=== PATIENT | female | born 1975 | race Caucasian/White ===

== ENCOUNTER 2019-10-29 06:34 | Day surgery (SDC) | payer OTHER ==
[~2019-10-29] VITALS: Ht 172.7 cm; Wt 63.2 kg
[2019-10-29] MEDS ORDERED: BACITRACIN 50,000 UNIT ONE (06:46)
[2019-10-29] MEDS ORDERED: BACITRACIN OINT 500U/GM, 15 GM ONE (06:46)
[2019-10-29] MEDS ORDERED: BUPIVACAINE/PF-EPI 0.5% 1:200K ONE (06:46)
[2019-10-29] MEDS ORDERED: THROMBIN 20,000 UNIT VIAL TP ONE (06:46)
[2019-10-29] MEDS ORDERED: LACTATED RINGERS 1,000 ML IV SCH (07:25)
[2019-10-29] MEDS ORDERED: CHLORHEXIDINE 15 ML UDC MM ONE (07:30)
[2019-10-29] MEDS ORDERED: CELE200C PO (07:32)
[2019-10-29] MEDS ORDERED: CALCIUM PO (07:32)
[2019-10-29] MEDS ORDERED: ZINC PO (07:32)
[2019-10-29] MEDS ORDERED: OMEG-157 PO (07:32)
[2019-10-29] MEDS ORDERED: VITA1TAB19 PO (07:32)
[2019-10-29] MEDS ORDERED: MULT-658 PO (07:32)
[2019-10-29] MEDS ORDERED: MAGNESIUM PO (07:32)
[2019-10-29] MEDS ORDERED: BIOTIN PO (07:32)
[2019-10-29 08:01] VITALS: BP 115/77
[2019-10-29] MEDS ORDERED: MIDAZOLAM 1 MG/ML, 2ML ONE (08:25)
[2019-10-29] MEDS ORDERED: FENTANYL PF 100 MCG/2ML ONE (08:25)
[2019-10-29] MEDS ORDERED: PROPOFOL 10 MG/ML, 50ML ONE (09:11)
[2019-10-29] MEDS ORDERED: CEFAZOLIN 1,000 MG ONE (09:47)
[2019-10-29] MEDS ORDERED: ROCURONIUM 10MG/ML,5ML ONE (09:47)
[2019-10-29] MEDS ORDERED: KETOROLAC 30 MG/1 ML ONE (09:47)
[2019-10-29] MEDS ORDERED: LIDOCAINE-MPF 2% ,5ML ONE (09:47)
[2019-10-29] MEDS ORDERED: GLYCOPYRROLATE 0.2MG/1ML, 5ML ONE (09:47)
[2019-10-29] MEDS ORDERED: DEXAMETHASONE 4 MG/ML, 1ML ONE (09:47)
[2019-10-29] MEDS ORDERED: ONDANSETRON 2MG/ML, 2ML ONE (09:47)
[2019-10-29] MEDS ORDERED: PROPOFOL 10 MG/ML, 20ML ONE (09:47)
[2019-10-29] MEDS ORDERED: NEOSTIGMINE 1 MG/ML, 10ML ONE (09:47)
[2019-10-29] MEDS ORDERED: SUCCINYLCHOLINE 20 MG/ML, 10ML ONE (09:47)
[2019-10-29] MEDS ORDERED: ALBUTEROL SULFATE 2.5 MG/3 ML NPPB PRN (10:00)
[2019-10-29] MEDS ORDERED: HYDROmorphone 1 MG/ML, 1ML INJ IVPush PRN (10:00)
[2019-10-29] MEDS ORDERED: LORazepam 2 MG/ML, 1ML IVPush PRN (10:00)
[2019-10-29] MEDS ORDERED: hydrALAzine 20 MG/ML, 1ML IV PRN (10:00)
[2019-10-29] MEDS ORDERED: ACETAMINOPHEN 325 MG TABLET PO PRN (10:00)
[2019-10-29] MEDS ORDERED: MEPERIDINE/PF 25MG/0.5ML IVPush PRN (10:00)
[2019-10-29] MEDS ORDERED: METHOCARBAMOL 1,000 MG in DEXTROSE 5% 100 ML IV PRN (10:00)
[2019-10-29] MEDS ORDERED: PROMETHAZINE 25 MG/ML, 1ML IVPush PRN (10:00)
[2019-10-29] MEDS ORDERED: OXYcodone 5 MG/5 ML ORAL.SOL UDC PO PRN (10:00)
[2019-10-29] MEDS ORDERED: FENTANYL PF 100 MCG/2ML IV PRN (10:00)
[2019-10-29] MEDS ORDERED: LABETALOL 5MG/ML, 20ML IV PRN (10:00)
[2019-10-29] MEDS ORDERED: MEPERIDINE/PF 25MG/ML,1ML ONE (10:27)
== END 2019-10-29 12:40 | disposition home or self-care (01) ==
LOC: OUT 06:34 → EDSTATUS 07:30 → OUT 12:40
PROVIDERS: ATTEND Neurological Surgery
DX: M51.27 Other intervertebral disc displacement, lumbosacral region (principal); M51.17 Intervertebral disc disorders with radiculopathy, lumbosacral region; M48.07 Spinal stenosis, lumbosacral region; Z79.899 Other long term (current) drug therapy; Z72.89 Other problems related to lifestyle; Z98.890 Other specified postprocedural states
CPT/HCPCS: 63030; 72100; 95938; 95941; J0330; J0690; J1100; J1885; J2175; J2250; J2405; J2704; J2710; J2800; J3010; J7120